=== PATIENT | male | born 2000 | race Two or more races ===

== ENCOUNTER 2022-08-03 06:21 | Day surgery (SDC) | payer OTHER ==
[2022-07-29 12:10] LABS: Basophils # (auto) 0 10 ^3/uL (0-0.2); Basophils % (auto) 0.3 % (0.0-2.0); Eosinophils # (auto) 0.1 10 ^3/uL (0-0.8); Eosinophils % (auto) 1.4 % (0.0-7.0); Lymphocytes # (auto) 1.6 10 ^3/uL (0.4-5.4); Lymphocytes % (auto) 28.4 % (10.0-50.0); Mean Corpuscular Hemoglobin 29.4 pg (28.0-32.0); Mean Corpuscular Hgb Conc. 34.7 g/dL (32.0-36.0); Mean Corpuscular Volume 84.7 fL (80.0-100.0); Monocytes # (auto) 0.4 10 ^3/uL (0-1.3); Monocytes % (auto) 7.1 % (0.0-12.0); Neutrophils # (auto) 3.6 10 ^3/uL (1.6-8.6); Neutrophils % (auto) 62.8 % (37.0-80.0); Nucleated Red Blood Cells % 0.2 %; Red Blood Cells 5.79 10^6/uL (4.5-5.90); White Blood Cell 5.7 10^3/uL (4.4-10.8)
[2022-07-29 12:25] LABS: Albumin 3.9 g/dL (3.4-5.0); Calcium 9.2 mg/dL (8.5-10.1); Potassium 4.2 mmol/L (3.5-5.1)
[2022-07-29 12:28] LABS: BUN/Creatinine Ratio 11.7 (10.0-20.0); Bilirubin, Total 0.6 mg/dL (0.2-1.0); Total Protein 7.8 g/dL (6.4-8.2)
[2022-07-29 12:35] LABS: INR 1.09 (0.9-1.15); Partial Thromboplastin Time 31.1 sec (24.6-33.4)
[2022-07-29 12:46] LABS: Urine Bacteria NONE SEEN /hpf (None Seen); Urine Blood Negative /uL (Negative); Urine Specific Gravity 1.005 (1.001-1.035); Urine WBC <1 /hpf (0 - 3)
[~2022-08-03] VITALS: Ht 180.3 cm; Wt 83.9 kg
[2022-08-03] MEDS ORDERED: GLYCOPYRROLATE 0.2 MG/ML 1ML VIAL ONE (06:53)
[2022-08-03] MEDS ORDERED: DexAMETHasone SOD PHOS 10MG/1ML VIAL INJ ONE (06:53)
[2022-08-03] MEDS ORDERED: LIDOCAINE 2% (LOCAL ANESTH.) PF 5ml SDV ONE ×2 (06:53→07:24)
[2022-08-03] MEDS ORDERED: fentaNYL CITRATE 100 MCG/2 ML VL ONE (06:53)
[2022-08-03] MEDS ORDERED: KETAMINE HCL 10 ML ONE (06:54)
[2022-08-03] MEDS ORDERED: SUGAMMADEX 200mg/2ml Vial (100MG/ML) IV ONE (06:54)
[2022-08-03] MEDS ORDERED: PROPOFOL 10 MG/ML 20 ML IV ONE (06:55)
[2022-08-03] MEDS ORDERED: ONDANSETRON HCL 4 MG/2 ML VIAL ONE (06:56)
[2022-08-03] MEDS ORDERED: LIDOCAINE 2% JELLY 11ml (GLYDO) ONE (07:08)
[2022-08-03] MEDS ORDERED: ESMOLOL HCL 10 ML IV ONE (07:51)
[2022-08-03] MEDS ORDERED: LABETALOL HCL 5 MG/ML 4ML SYRINGE IV PRN (09:00)
[2022-08-03] MEDS ORDERED: ONDANSETRON HCL 4 MG/2 ML VIAL IV PRN (09:00)
[2022-08-03] MEDS ORDERED: FLUMAZENIL 0.1 MG/ML INJ 10ML MDV IV PRN (09:00)
[2022-08-03] MEDS ORDERED: NALOXONE HCL 0.4 MG/ML VIAL IV PRN (09:00)
[2022-08-03] MEDS ORDERED: fentaNYL CITRATE 100 MCG/2 ML VL IV PRN (09:00)
[2022-08-03] MEDS ORDERED: oxyCODONE HCL 5MG TAB PO PRN (09:00)
[2022-08-03] MEDS ORDERED: HYDROmorphone HCL 2 MG/ML VL/or syr IV PRN (09:00)
[2022-08-03] MEDS ORDERED: ePHEDrine SULFATE 50 MG/ML AMP IV PRN (09:00)
[2022-08-03] MEDS ORDERED: hydrALAZINE HCL 20 MG/ML VL IV PRN (09:00)
[2022-08-03] MEDS ORDERED: oxyCODONE HCL 5MG TAB PO ONE (09:19)
[2022-08-03 10:00] VITALS: BP 144/66
== END 2022-08-03 10:01 | disposition home or self-care (01) ==
LOC: SUR 06:21
PROVIDERS: ATTEND Otolaryngology
DX: J03.91 Acute recurrent tonsillitis, unspecified (principal); J35.01 Chronic tonsillitis
CPT/HCPCS: 36415; 42826; 80053; 81001; 85025; 85610; 85730; J1100; J2001; J2405; J2704; J3010

== ENCOUNTER → 2023-05-25 | Outpatient (CLI) | payer OTHER ==
[2023-05-25 14:56] LABS: Albumin 4.4 g/dL (3.2-4.8); Bilirubin, Direct 0.2 mg/dL (<0.3); Bilirubin, Total 0.6 mg/dL (0.2-1.0); Total Protein 6.9 g/dL (5.7-8.2)
[2023-05-25 14:57] LABS: Urine Bacteria NONE SEEN /hpf (None Seen); Urine Blood Negative /uL (Negative); Urine Clarity HAZY (Clear); Urine Color Colorless (Yellow); Urine Protein, UAD Negative (Negative); Urine Specific Gravity 1.026 (1.001-1.035); Urine Urobilinogen Normal (Negative); Urine WBC 4 /hpf (0 - 3); Urine pH 6.5 (5.0-8.0)
== END | disposition home or self-care (01) ==
LOC: LAB 14:17
PROVIDERS: ATTEND Internal Medicine
DX: R74.8 Abnormal levels of other serum enzymes (principal); R82.90 Unspecified abnormal findings in urine
CPT/HCPCS: 36415; 80076; 81001; 87086

== ENCOUNTER → 2024-08-08 | Outpatient (CLI) | payer OTHER ==
[2024-08-08 11:32] LABS: Urine Bacteria None Seen /hpf (None Seen)
[2024-08-08 11:41] LABS: Basophils # (auto) 0 10 ^3/uL (0-0.2); Eosinophils # (auto) 0.1 10 ^3/uL (0-0.8); Hemoglobin 17.9 g/dL (13.5-17.5)
[2024-08-08 11:43] LABS: Basophils % (auto) 0.5 % (0.0-2.0); Hematocrit 52.3 % (41.0-53.0); Lymphocytes # (auto) 1.6 10 ^3/uL (0.4-5.4); Lymphocytes % (auto) 31.6 % (10.0-50.0); Mean Corpuscular Hemoglobin 29.2 pg (28.0-32.0); Mean Corpuscular Hgb Conc. 34.2 g/dL (32.0-36.0); Mean Corpuscular Volume 85.3 fL (80.0-100.0); Monocytes # (auto) 0.4 10 ^3/uL (0-1.3); Monocytes % (auto) 7.2 % (0.0-12.0); Neutrophils % (auto) 58.7 % (37.0-80.0); Nucleated Red Blood Cells % 0.3 %; Platelet Count (auto) 273 10^3/uL (140-450); Red Blood Cells 6.14 10^6/uL (4.5-5.90); Red Cell Distribution Width 12.8 % (11.8-14.3); White Blood Cell 5.1 10^3/uL (4.4-10.8)
[2024-08-08 11:53] LABS: Urine Blood Negative /uL (Negative); Urine Clarity Clear (Clear); Urine Color Light-Yellow (Yellow); Urine Mucus FEW (None Seen); Urine Protein, UAD Negative (Negative); Urine Specific Gravity 1.027 (1.001-1.035); Urine Squamous Epithelial Cell None Seen /hpf (<5); Urine Urobilinogen Normal (Negative); Urine WBC < 1 /HPF (0-3)
[2024-08-08 11:57] LABS: Alanine Aminotransferase 31 U/L (7-40); Alkaline Phosphatase 114 U/L (46-116); Anion Gap 5 (5-15); Aspartate Aminotransferase 30 U/L (13-40); BUN/Creatinine Ratio 17.6 (10.0-20.0); Blood Urea Nitrogen 18 mg/dL (9-23); Calcium 10.2 mg/dL (8.7-10.4); Carbon Dioxide 28 mmol/L (20-31); Chloride 104 mmol/L (98-107); Glucose 98 mg/dL (74-106); Potassium 4.3 mmol/L (3.5-5.1); Sodium 137 mmol/L (136-145); Triglycerides 61 mg/dL (< 150)
[2024-08-08 11:58] LABS: Albumin 4.9 g/dL (3.2-4.8); Bilirubin, Total 0.8 mg/dL (0.2-1.0); Cholesterol 200 mg/dL (< 200); HDL Cholesterol 51 mg/dL (40-59); LDL Cholesterol 142 mg/dL (< 100)
== END | disposition home or self-care (01) ==
LOC: LAB 11:17
PROVIDERS: ATTEND Internal Medicine
DX: E78.00 Pure hypercholesterolemia, unspecified (principal); R74.8 Abnormal levels of other serum enzymes; R82.90 Unspecified abnormal findings in urine; Z13.1 Encounter for screening for diabetes mellitus; Z00.01 Encounter for general adult medical examination with abnormal findings
CPT/HCPCS: 36415; 80053; 80061; 81001; 83036; 84439; 84443; 85025

== ENCOUNTER 2024-09-27 02:22 | Inpatient (IN) | payer OTHER ==
[~2024-09-27] VITALS: Ht 180.3 cm; Wt 89.0 kg
--- NOTE | 2024-09-27 02:50 | ED.PDOC ---
History of Present Illness HPI Comments 23-year-old male who came to ER for headaches. Patient states he hit his head on a bar at the gym last week, started having headaches but this all resolved spontaneously. Yesterday at around 11:00 a.m., and a metal box. Denies any loss of consciousness. Patient went home, slept it off but woke up due to right sided headaches, which he describes as "cold", 6/10 intensity, associated with lightheadedness, imbalance and photophobia. Denies any tinnitus, nausea or vomiting Chief Complaint: Headaches Time Seen by MD: 02:49 Reviewed Notes: Nurses Notes Allergies: Coded Allergies: NO KNOWN ALLERGIES (Unverified , 07/29/22) Home Meds Active Scripts Ibuprofen Micronized (MOTRIN TABLET) 600 Mg Tb, 600 MG PO TID PRN for 5 Days, #15 TAB *Black box warning-NSAIDS can increase risk of HI & hypertension, GI irritation, ulceration, bleed, perferation. Do not use post cardiac surgery. Use short duration/lowest effective dose. Prov:CORINA BEVERLY MD 09/27/24 Acetaminophen (Tylenol) 325 Mg Tb, 650 MG PO Q8HPRN PRN for 10 Days, #60 TAB Prov:CORINA BEVERLY MD 09/27/24 Information Source: Patient, Relative (Mother) Mode of Arrival: Ambulatory Severity: Moderate Timing: Hours Duration: Since onset Review of Systems REVIEW OF SYSTEMS: No fever, no chills, or fatigue HEENT: No sore throat, no earache, no congestion, no neck pain. Cardiac: No chest pain. No palpitations. Lungs: No shortness of breath, no cough. GI: No nausea, no vomiting, no diarrhea, no constipation, no abdominal pain : No dysuria, frequency, or urgency. No hematuria. Musculoskeletal: No joint pain , no joint swelling, no extremity edema. Skin: No rash, no itching. Neuro: (+) headache, no dizziness, no weakness, (+) imbalance Vital Signs Vital Signs Date Time Temp Pulse Resp B/P (MAP) Pulse Ox O2 Delivery O2 Flow Rate FiO2 09/27/24 04:00 74 09/27/24 03:45 98.1 18 126/78 (94) 96 98.1 09/27/24 03:45 Room Air* 0 21 Physical Exam General: Awake, alert and oriented. No acute distress. Skin: Skin in warm, dry and intact. Appropriate color for ethnicity. Nailbeds pink with no cyanosis. HEENT: The head is normocephalic and atraumatic. Conjunctivae are clear without exudates or hemorrhage. Sclera is non-icteric. EOM are intact. No signs of nystagmus. Eyelids are normal in appearance without swelling or lesions. PERRLA. Oral mucosa is pink and moist Neck: The neck is supple with normal range of motion. No JVD. Cardiac: Heart rate and rhythm are normal. No murmurs, gallops, or rubs are auscultated. Respiratory: No signs of respiratory distress. Lung sounds are clear in all lobes bilaterally without rales, rhonchi, or wheezes. Abdominal: Abdomen is soft, non-tender without distention. Bowel sounds are present and normoactive in all four quadrants. Extremities: Upper and lower extremities are atraumatic in appearance without deformity or edema. Neurological: The patient is awake, alert and oriented to person, place, and time with normal speech. Speech is clear. There is no facial asymmetry. Normal finger to nose test. Normal heel bettencourt test. Wobbling/ataxic gait. + Romberg. Psychiatric: Appropriate mood and affect. Good judgement and insight. Past Medical History Past Medical History (Other): Meningitis Surgical History: Denies all surgeries Family History Family History: Reviewed,noncontributory to illness Social History Smoker: Non-Smoker Alcohol: Denies ETOH Use Drugs: Denies Drug Use Lives In: Home Was a procedure done? Was a procedure done?: No Differential Dx Considerations may include: Differential diagnoses considered include but are not limited to temporal arteritis, acute angle closure glaucoma, encephalitis, bacterial meningitis, carbon monoxide poisoning, posttraumatic headache, SAH, subdural hematoma, cervical artery dissection, venous sinus thrombosis, CVA, migraine headache, cluster headache, tension headache, TMJ disorder, frontal sinusitis, cervical spondylosis, intracranial mass, pituitary apoplexy. X-Ray, Labs, Meds, VS Vital Signs Date Time Temp Pulse Resp B/P (MAP) Pulse Ox O2 Delivery O2 Flow Rate FiO2 09/27/24 04:00 74 09/27/24 03:45 98.1 68 18 126/78 (94) 96 98.1 09/27/24 03:45 68 18 96 Room Air* 0 21 09/27/24 03:11 98.7 60 16 121/77 (92) 96 98.7 Lab Test 09/27/24 03:55 09/27/24 02:55 Range/Units Troponin I High Sensitivity 13 12 </=54 ng/L White Blood Count 6.8 4.4-10.8 10^3/uL Red Blood Count 5.86 4.5-5.90 10^6/uL Hemoglobin 17.2 13.5-17.5 g/dL Hematocrit 49.9 41.0-53.0 % Mean Corpuscular Volume 85.1 80.0-100.0 fL Mean Corpuscular Hemoglobin 29.4 28.0-32.0 pg Mean Corpuscular Hemoglobin Concent 34.5 32.0-36.0 g/dL Red Cell Distribution Width 12.9 11.8-14.3 % Platelet Count 229 140-450 10^3/uL Mean Platelet Volume 7.7 6.9-10.8 fL Neutrophils (%) (Auto) 49.8 37.0-80.0 % Lymphocytes (%) (Auto) 37.9 10.0-50.0 % Monocytes (%) (Auto) 8.6 0.0-12.0 % Eosinophils (%) (Auto) 2.9 0.0-7.0 % Basophils (%) (Auto) 0.8 0.0-2.0 % Neutrophils # (Auto) 3.4 1.6-8.6 10 ^3/uL Lymphocytes # (Auto) 2.6 0.4-5.4 10 ^3/uL Monocytes # (Auto) 0.6 0-1.3 10 ^3/uL Eosinophils # (Auto) 0.2 0-0.8 10 ^3/uL Basophils # (Auto) 0.1 0-0.2 10 ^3/uL Nucleated Red Blood Cells 0.1 % Prothrombin Time 11.4 9.3-11.8 sec Prothrombin Time INR 1.08 0.9-1.15 Sodium Level 137 136-145 mmol/L Potassium Level 3.9 3.5-5.1 mmol/L Chloride Level 103 98-107 mmol/L Carbon Dioxide Level 27 20-31 mmol/L Anion Gap 7 5-15 Blood Urea Nitrogen 15 9-23 mg/dL Creatinine 1.03 0.700-1.30 mg/dL Glomerular Filtration Rate Calc 106 >90 mL/min BUN/Creatinine Ratio 14.6 10.0-20.0 Serum Glucose 98 74-106 mg/dL Calcium Level 9.7 8.7-10.4 mg/dL Magnesium Level 2.1 1.6-2.6 mg/dL Total Bilirubin 0.5 0.2-1.0 mg/dL Aspartate Amino Transferase (AST) 42 H <34 U/L Alanine Aminotransferase (ALT) 35 7-40 U/L Alkaline Phosphatase 130 H 46-116 U/L Creatine Kinase 760 H 46-171 U/L Total Protein 7.6 5.7-8.2 g/dL Albumin 4.8 3.2-4.8 g/dL Plasma/Serum Blood Alcohol 4.0 <10 mg/dL Current Medications Medications (Trade) Dose Ordered Sig/Don Route Start Time Stop Time Status Last Admin Sodium Chloride 1,000 ml @ 1,000 mls/hr Q1H ONCE IV 09/27/24 02:45 09/27/24 03:44 DC 09/27/24 03:15 Acetaminophen (Tylenol Tablet Or Capsule) 1,000 mg ONCE ONCE PO 09/27/24 02:45 09/27/24 02:46 DC 09/27/24 04:07 CT HEAD WITHOUT CONTRAST INDICATION: Head injury, headache, dizziness, confusion COMPARISON: None TECHNIQUE: CT of the head without intravenous contrast. RADIATION DOSE: CTDIvol: 55.07 mGy, DLP: 882.86 mGy*cm FINDINGS: There is no evidence of acute intracranial hemorrhage, extra-axial collection, mass effect, midline shift, herniation or hydrocephalus. The ventricles, sulci and cisterns are age appropriate. The ruiz-white differentiation is intact. The visualized paranasal sinuses and mastoid air cells are clear. The surrounding soft tissues and osseous structures are unremarkable. IMPRESSION: 1. No evidence of acute intracranial hemorrhage, mass effect or hydrocephalus. EDURE(s): [place] - ANGIO HEAD/Neck INDICATION: intracranial hemorrhage EXAM DATE: 09/27/2024 03:49 AM COMPARISON: None TECHNIQUE: CTA head without and with intravenous contrast. CTA neck with intravenous contrast. 3D image postprocessing was performed on a dedicated workstation and images were used for interpretation and reporting. RADIATION DOSE: Brain: CTDIvol: 22.28 mGy, DLP: 828.54 mGy*cm Tracker: CTDIvol: 22.28 mGy, DLP: 828.54 mGy*cm Angio: CTDIvol: 22.28 mGy, DLP: 828.54 mGy*cm FINDINGS: c CTA head: There is normal enhancement of the visualized distal internal carotid, anterior and middle cerebral arteries. There is a normal anterior communicating artery complex. There are bilateral posterior communicating arteries. The vertebral, basilar, cerebellar and posterior cerebral arteries are within normal limits. The early parenchymal enhancement is grossly unremarkable. The visualized intracranial venous structures are grossly unremarkable. CTA neck: The visualized thoracic aortic arch and proximal great vessels are unremarkable. The left common, internal and external carotid arteries are within normal limits. The right common, internal and external carotid arteries are within normal limits. The cervical segments of the right and left vertebral arteries are within normal limits. The limited visualized lung apices are clear. The surrounding soft tissues and osseous structures are otherwise unremarkable. IMPRESSION: No evidence of hemodynamically significant intracranial stenosis, proximal occlusion or aneurysm. No evidence of hemodynamically significant cervical stenosis or dissection. EXAM: CT CERVICAL WITHOUT CONTRAST HISTORY: head injury COMPARISON: None CTDIvol 22.94 mGy, DLP 648.5 mGy*cm. TECHNIQUE: Multiple axial CT images of the spine were obtained using bone algorithm. Axial and coronal reformatting was done. Bone and soft tissue windows were reviewed. FINDINGS: No CT evidence of definite acute fracture, spinal dislocation, or significant appearing acute subluxation is seen. Mild reversal of the normal cervical lordosis may be due to patient positioning or muscle spasm. Mild dextroconvex curvature of the cervicothoracic spine centered at T1. The visualized paraspinal soft tissues are grossly unremarkable. Multilevel degenerative changes of the spine. IMPRESSION: 1. No definite CT evidence of acute fracture or dislocation of the bony cervical spine. Time of 1ST Reevaluation: 02:43 Reevaluation 1ST: Unchanged Patient Education/Counseling: Prognosis Family Education/Counseling: Prognosis SEPSIS Sepsis Screen Physician Orders Head Without Contrast (09/27/24 02:42) Orthostatic Vital Signs (09/27/24 02:42) Cervical Without Contrast (09/27/24 03:04) Angio Head/Neck (09/27/24 03:22) Imaging Transfer Request (09/27/24 03:35) Brain Head Wo Contrast (09/27/24 04:10) * Neurology Consult (09/27/24 04:10) Vital Signs Date Time Temp Pulse Resp B/P (MAP) Pulse Ox O2 Delivery O2 Flow Rate FiO2 09/27/24 04:00 74 09/27/24 03:45 98.1 68 18 126/78 (94) 96 98.1 09/27/24 03:45 68 18 96 Room Air* 0 21 09/27/24 03:11 98.7 60 16 121/77 (92) 96 98.7 Laboratory Tests Test 09/27/24 02:55 White Blood Count 6.8 10^3/uL (4.4-10.8) Departure 1 Departure Time of Disposition: 03:33 Impression: Primary Impression: Head injury Additional Impressions: Concussion Abnormal gait Disposition: 02 SHORT TERM HOSPITAL Condition: Stable e-Prescriptions Ibuprofen Micronized (MOTRIN TABLET) 600 Mg Tb 600 MG PO TID PRN for 5 Days, #15 TAB *Black box warning-NSAIDS can increase risk of HI & hypertension, GI irritation, ulceration, bleed, perferation. Do not use post cardiac surgery. Use short duration/lowest effective dose. Prov: CORINA BEVERLY MD 09/27/24 Acetaminophen (Tylenol) 325 Mg Tb 650 MG PO Q8HPRN PRN for 10 Days, #60 TAB Prov: CORINA BEVERLY MD 09/27/24 Comments 23 year old male presents with head injury, headache, abnormal gait. Initial independent interpretation of CT head concerning for right occipital hemorrhage @03:32 am Case discussed with Dr. Mcbride at [facility] who accepts patient for transfer. @03:[address] Marley who reviewed CT head again stating there is no hemorrhage or hematoma and findings in right occipital area are normal Sagittal Sinus) Patient admitted to hospitalist service for further treatment, evaluation and monitoring. Extensive evaluation was performed in attempt to identify or rule out: (See differential diagnosis section) The following tests were ordered, and results were reviewed by me and discussed with patient: (See diagnostic results section) The following test were independently interpreted by me: N/A I reviewed and agreed with the following test results read by other providers: N/A I reviewed the following notes from the pt's past medical encounters: N/A Additional information was gathered from interviewing the following independent historians: Patient's mother at bedside Discussion of management or test interpretation with external physician/other qualified health intensive care nurse: N/A Addressed an acute or chronic illness that poses a threat to life or bodily function: Intracranial hemorrhage Decision regarding hospitalization or escalation of hospital level of care: Risk and benefits of admission for further treatment of patient's condition was considered. Due to patient's current clinical condition, high risk of decline and poor outcome if discharged and need for further inpatient management and monitoring, patient will be admitted to the hospital. Discussed with patient. Drug therapy requiring intensive monitoring for toxicity: N/A Parenteral controlled substances: N/A Decision regarding elective major surgery with identified patient or procedure risk factors: N/A Decision regarding emergency major surgery: N/A Decision not to resuscitate or to de-escalate care because of poor prognosis: N/A Diagnosis or treatment significantly limited by social determinants of health: N/A Critical Care Note Critical Care Time?: No Stability Stability form required: No Heart Score Heart Score: Heart Score Response (Comments) Value History N/A 0 EKG N/A 0 Age N/A 0 Risk Factors N/A 0 Troponin N/A 0 Total 0 I personally scribed for VASILIY CHAUDHRY MD ([email or web address]) on 09/27/24 at 02:50. Electronically submitted by Anam Blanchard ([employer]). I personally scribed for VASILIY CHAUDHRY MD ([email or web address]) on 09/27/24 at 04:41. Electronically submitted by Anam Blanchard ([employer]). VASILIY CHAUDHRY MD Sep 27, 2024 02:50
[2024-09-27] MEDS: SODIUM CHLORIDE 0.9% 1,000 ML IV ONE (03:15)
[2024-09-27 03:20] LABS: Basophils # (auto) 0.1 10 ^3/uL (0-0.2); Basophils % (auto) 0.8 % (0.0-2.0); Eosinophils # (auto) 0.2 10 ^3/uL (0-0.8); Eosinophils % (auto) 2.9 % (0.0-7.0); Hematocrit 49.9 % (41.0-53.0); Hemoglobin 17.2 g/dL (13.5-17.5); Lymphocytes # (auto) 2.6 10 ^3/uL (0.4-5.4); Lymphocytes % (auto) 37.9 % (10.0-50.0); Mean Corpuscular Hemoglobin 29.4 pg (28.0-32.0); Mean Corpuscular Hgb Conc. 34.5 g/dL (32.0-36.0); Mean Corpuscular Volume 85.1 fL (80.0-100.0); Monocytes # (auto) 0.6 10 ^3/uL (0-1.3); Monocytes % (auto) 8.6 % (0.0-12.0); Neutrophils # (auto) 3.4 10 ^3/uL (1.6-8.6); Neutrophils % (auto) 49.8 % (37.0-80.0); Nucleated Red Blood Cells % 0.1 %; Platelet Count (auto) 229 10^3/uL (140-450); Red Blood Cells 5.86 10^6/uL (4.5-5.90); Red Cell Distribution Width 12.9 % (11.8-14.3); White Blood Cell 6.8 10^3/uL (4.4-10.8)
[2024-09-27] MEDS: levETIRAcetam 1000 mg/100ml 100 ML IV ONE (03:30)
--- NOTE | 2024-09-27 03:30 | DVH ---
CT HEAD WITHOUT CONTRAST INDICATION: Head injury, headache, dizziness, confusion COMPARISON: None TECHNIQUE: CT of the head without intravenous contrast. RADIATION DOSE: CTDIvol: 55.07 mGy, DLP: 882.86 mGy*cm FINDINGS: There is no evidence of acute intracranial hemorrhage, extra-axial collection, mass effect, midline s hift, herniation or hydrocephalus. The ventricles, sulci and cisterns are age appropriate. The ruiz -white differentiation is intact. The visualized paranasal sinuses and mastoid air cells are clear. The surrounding soft tissues and osseous structures are unremarkable. IMPRESSION: 1. No evidence of acute intracranial hemorrhage, mass effect or hydrocephalus.
[2024-09-27 03:36] LABS: Alanine Aminotransferase 35 U/L (7-40); Anion Gap 7 (5-15); BUN/Creatinine Ratio 14.6 (10.0-20.0); Bilirubin, Total 0.5 mg/dL (0.2-1.0); Blood Urea Nitrogen 15 mg/dL (9-23); Calcium 9.7 mg/dL (8.7-10.4); Carbon Dioxide 27 mmol/L (20-31); Chloride 103 mmol/L (98-107); Glucose 98 mg/dL (74-106); Magnesium 2.1 mg/dL (1.6-2.6); Potassium 3.9 mmol/L (3.5-5.1); Sodium 137 mmol/L (136-145); Total Protein 7.6 g/dL (5.7-8.2)
--- NOTE | 2024-09-27 03:42 | DVH ---
EXAM: CT CERVICAL WITHOUT CONTRAST HISTORY: head injury COMPARISON: None CTDIvol 22.94 mGy, DLP 648.5 mGy*cm. TECHNIQUE: Multiple axial CT images of the spine were obtained using bone algorithm. Axial and coron al reformatting was done. Bone and soft tissue windows were reviewed. FINDINGS: No CT evidence of definite acute fracture, spinal dislocation, or significant appearing acute subluxa tion is seen. Mild reversal of the normal cervical lordosis may be due to patient positioning or musc le spasm. Mild dextroconvex curvature of the cervicothoracic spine centered at T1. The visualized par aspinal soft tissues are grossly unremarkable. Multilevel degenerative changes of the spine. IMPRESSION: 1. No definite CT evidence of acute fracture or dislocation of the bony cervical spine.
[2024-09-27 03:44] LABS: Albumin 4.8 g/dL (3.2-4.8); Alkaline Phosphatase 130 U/L (46-116); Aspartate Aminotransferase 42 U/L (<34); Creatine Kinase IFCC 760 U/L (46-171)
[2024-09-27 03:45] VITALS: PULSE 68; RESP 18; O2SAT 96
[2024-09-27 03:58] LABS: INR 1.08 (0.9-1.15); Prothrombin Time 11.4 sec (9.3-11.8)
[2024-09-27] MEDS: ACETAMINOPHEN 500 MG TAB or CAP PO ONE (04:07)
--- NOTE | 2024-09-27 04:30 | DVH ---
INDICATION: intracranial hemorrhage EXAM DATE: 09/27/2024 03:49 AM COMPARISON: None TECHNIQUE: CTA head without and with intravenous contrast. CTA neck with intravenous contrast. 3D image postprocessing was performed on a dedicated workstation and images were used for interpretation and reporting. RADIATION DOSE: Brain: CTDIvol: 22.28 mGy, DLP: 828.54 mGy*cm Tracker: CTDIvol: 22.28 mGy, DLP: 828.54 mGy*cm Angio: CTDIvol: 22.28 mGy, DLP: 828.54 mGy*cm FINDINGS: c CTA head: There is normal enhancement of the visualized distal internal carotid, anterior and middle cerebral a rteries. There is a normal anterior communicating artery complex. There are bilateral posterior com municating arteries. The vertebral, basilar, cerebellar and posterior cerebral arteries are within n ormal limits. The early parenchymal enhancement is grossly unremarkable. The visualized intracrania l venous structures are grossly unremarkable. CTA neck: The visualized thoracic aortic arch and proximal great vessels are unremarkable. The left common, in ternal and external carotid arteries are within normal limits. The right common, internal and deck engineer al carotid arteries are within normal limits. The cervical segments of the right and left vertebral arteries are within normal limits. The limited visualized lung apices are clear. The surrounding so ft tissues and osseous structures are otherwise unremarkable. IMPRESSION: c No evidence of hemodynamically significant intracranial stenosis, proximal occlusion or aneurysm. No evidence of hemodynamically significant cervical stenosis or dissection. CAROTID STENOSIS REFERENCE Distal internal carotid artery diameter as the denominator for stenosis measurement: MILD = <50% stenosis. MODERATE = 50-69% stenosis. SEVERE = 70-89% stenosis. CRITICAL = 90-99% stenosis. OCCLUDED = 100% stenosis.
[2024-09-27] MEDS ORDERED: NITROGLYCERIN 0.4 MG SL TAB SL PRN (06:00)
[2024-09-27] MEDS ORDERED: ACETAMINOPHEN 325 MG TAB PO PRN (06:00)
[2024-09-27] MEDS: SODIUM CHLORIDE 0.9% 1,000 ML IV SCH (06:00)
[2024-09-27] MEDS ORDERED: HYDROcodone-ACET 5/325MG TAB PO PRN (06:00)
[2024-09-27] MEDS ORDERED: DOCUSATE SOD 100 MG CAP PO PRN (06:00)
[2024-09-27] MEDS ORDERED: MORPHINE SULFATE INJ 2 MG/ml SYRG IV PRN (06:00)
[2024-09-27] MEDS ORDERED: ONDANSETRON HCL 4 MG/2 ML VIAL IV PRN (06:00)
[2024-09-27 06:06] LABS: Urine Bacteria None Seen /hpf (None Seen)
[2024-09-27 06:18] LABS: Urine Blood Negative /uL (Negative); Urine Clarity Clear (Clear); Urine Color Colorless (Yellow); Urine Protein, UAD Negative (Negative); Urine Specific Gravity 1.027 (1.001-1.035); Urine Squamous Epithelial Cell None Seen /hpf (<5); Urine Urobilinogen Normal (Negative); Urine pH 6.5 (5.0-9.0)
--- NOTE | 2024-09-27 06:18 | DVHHP2 ---
History of Present Illness Reason for Visit: Head injury History of Present Illness The patient is a 23-year-old male who denies past medical history presented to [facility] ED with complaint of headache. Patient reports that he hit his head on a back at the gym last week and started experiencing headache, but resolves spontaneously. Patient when home slept off, but woke up due to right-sided headache, described as cold, rating 6/10 intensity, associated with lightheadedness, unsteady gait, and photophobia. Patient was seen and evaluated in the ED, laboratory data shows WBC 6.8, platelets 229, sodium 137, potassium 3.9, BUN 15, creatinine 1.03, glucose 98, AST 42, ALT 35, troponin 12, CK 760, blood pressure 126/78, heart rate 68, temperature 98.1 F, O2 saturation 96% on room air. Head CT showed no evidence of acute intracranial hemorrhage, mass effect, or hydrocephalus. Neurology will follow the patient. Patient was given IV Keppra, please see medication orders section in the computer. On my assessment, patient denies chest pain, no dizziness, no blurry vision, no diaphoresis, no shortness a breath, no nausea, no vomiting, no fever, no chills. Patient was admitted for further evaluation and medical management. Past Medical History Denies past medical history Past Surgical History Denies all surgeries Family History Reviewed, noncontributory to the management of this case. Past Social History The patient lives at home, denies smoking, alcohol or illicit drugs abuse. Review of Systems Constitutional: No: Fever, Chills, Sweats, Weakness, Malaise, Other Eyes: No: Pain, Vision change, Conjunctivae inflammation, Eyelid inflammation, Other, Redness ENT: No: Ear pain, Ear discharge, Nose pain, Nose discharge, Nose congestion, Mouth pain, Mouth swelling, Throat pain, Throat swelling, Other Respiratory: No: Cough, Dry, Shortness of breath, SOB with excertion, Wheezing, Hemoptysis, Pleuritic Pain, Sputum, Wheezing, Other Cardiovascular: No: Chest Pain, Palpitations, Orthopnea, Paroxysmal Noc. Dyspnea, Edema, Lt Headedness, Other Gastrointestinal: No: Nausea, Vomiting, Abdominal Pain, Diarrhea, Constipation, Melena, Hematochezia, Other Genitourinary: No Dysuria, No Frequency, No Incontinence, No Hematuria, No Retention, No Other Musculoskeletal: No: other, neck pain, shoulder pain, arm pain, back pain, hand pain, leg pain, foot pain Skin: No: Rash, Lesions, Jaundice, Bruising, Other Neurological: Other (Headache); No: Weakness, Numbness, Incoordination, Change in speech, Confusion, Seizures Allergies: Coded Allergies: NO KNOWN ALLERGIES (Unverified , 07/29/22) Exam Vital Signs Vital Signs Date Time Temp Pulse Resp B/P (MAP) Pulse Ox O2 Delivery O2 Flow Rate FiO2 09/27/24 04:00 74 09/27/24 03:45 98.1 18 126/78 (94) 96 98.1 09/27/24 03:45 Room Air* 0 21 General Appearance: Alert, Oriented X3, Cooperative, No acute distress HEENT: Atraumatic, PERRLA, EOMI, Mucous membr. moist/pink Respiratory: Clear to auscultation, Normal air movement Cardiovascular: Regular rate, Normal S1, Normal S2, No murmurs Abdominal: Normal bowel sounds, Soft, No tenderness, No hepatospenomegaly, No masses Extremities: No clubbing, No cyanosis, No edema, Normal pulses, No tenderness/swelling Skin: No rashes, No breakdown, No significant lesion Neuro: Normal speech, Normal tone, Sensation intact, Cranial nerves 3-12 NL, Reflexes 2+, Other (Unsteady gait) Psych/Mental Status: Mental status NL, Mood NL Labs/Xrays Labs Test 09/27/24 03:55 09/27/24 02:55 Range/Units Troponin I High Sensitivity 13 </=54 ng/L White Blood Count 6.8 4.4-10.8 10^3/uL Red Blood Count 5.86 4.5-5.90 10^6/uL Hemoglobin 17.2 13.5-17.5 g/dL Hematocrit 49.9 41.0-53.0 % Mean Corpuscular Volume 85.1 80.0-100.0 fL Mean Corpuscular Hemoglobin 29.4 28.0-32.0 pg Mean Corpuscular Hemoglobin Concent 34.5 32.0-36.0 g/dL Red Cell Distribution Width 12.9 11.8-14.3 % Platelet Count 229 140-450 10^3/uL Mean Platelet Volume 7.7 6.9-10.8 fL Neutrophils (%) (Auto) 49.8 37.0-80.0 % Lymphocytes (%) (Auto) 37.9 10.0-50.0 % Monocytes (%) (Auto) 8.6 0.0-12.0 % Eosinophils (%) (Auto) 2.9 0.0-7.0 % Basophils (%) (Auto) 0.8 0.0-2.0 % Neutrophils # (Auto) 3.4 1.6-8.6 10 ^3/uL Lymphocytes # (Auto) 2.6 0.4-5.4 10 ^3/uL Monocytes # (Auto) 0.6 0-1.3 10 ^3/uL Eosinophils # (Auto) 0.2 0-0.8 10 ^3/uL Basophils # (Auto) 0.1 0-0.2 10 ^3/uL Nucleated Red Blood Cells 0.1 % Prothrombin Time 11.4 9.3-11.8 sec Prothrombin Time INR 1.08 0.9-1.15 Sodium Level 137 136-145 mmol/L Potassium Level 3.9 3.5-5.1 mmol/L Chloride Level 103 98-107 mmol/L Carbon Dioxide Level 27 20-31 mmol/L Anion Gap 7 5-15 Blood Urea Nitrogen 15 9-23 mg/dL Creatinine 1.03 0.700-1.30 mg/dL Glomerular Filtration Rate Calc 106 >90 mL/min BUN/Creatinine Ratio 14.6 10.0-20.0 Serum Glucose 98 74-106 mg/dL Calcium Level 9.7 8.7-10.4 mg/dL Magnesium Level 2.1 1.6-2.6 mg/dL Total Bilirubin 0.5 0.2-1.0 mg/dL Aspartate Amino Transferase (AST) 42 H <34 U/L Alanine Aminotransferase (ALT) 35 7-40 U/L Alkaline Phosphatase 130 H 46-116 U/L Creatine Kinase 760 H 46-171 U/L Total Protein 7.6 5.7-8.2 g/dL Albumin 4.8 3.2-4.8 g/dL Plasma/Serum Blood Alcohol 4.0 <10 mg/dL PATIENT: JOSH MCCAIN DACCT: [id number] UNIT: [id number] : 2000 LOC: ER ROOM / BED: / AGE / SEX: 23 / M ADM STATUS: REG ER SERVICE [id number] ORDERING PHYSICIAN: VASILIY CHAUDHRY MD PROCEDURE(s): HWOCT - HEAD WITHOUT CONTRAST REASON: Head injury, headache, dizziness, confusion ORDER NUMBER(s): [id number], ACCESSION NUMBER(s): [id number] CT HEAD WITHOUT CONTRAST INDICATION: Head injury, headache, dizziness, confusion COMPARISON: None TECHNIQUE: CT of the head without intravenous contrast. RADIATION DOSE: CTDIvol: 55.07 mGy, DLP: 882.86 mGy*cm FINDINGS: There is no evidence of acute intracranial hemorrhage, extra-axial collection, mass effect, midline shift, herniation or hydrocephalus. The ventricles, sulci and cisterns are age appropriate. The ruiz-white differentiation is intact. The visualized paranasal sinuses and mastoid air cells are clear. The surrounding soft tissues and osseous structures are unremarkable. IMPRESSION: 1. No evidence of acute intracranial hemorrhage, mass effect or hydrocephalus. ORDERING PHYSICIAN: VASILIY CHAUDHRY MD PROCEDURE(s): CS2 - CERVICAL WITHOUT CONTRAST REASON: head injury ORDER NUMBER(s): [id number], ACCESSION NUMBER(s): [id number] EXAM: CT CERVICAL WITHOUT CONTRAST HISTORY: head injury COMPARISON: None CTDIvol 22.94 mGy, DLP 648.5 mGy*cm. TECHNIQUE: Multiple axial CT images of the spine were obtained using bone algorithm. Axial and coronal reformatting was done. Bone and soft tissue windows were reviewed. FINDINGS: No CT evidence of definite acute fracture, spinal dislocation, or significant appearing acute subluxation is seen. Mild reversal of the normal cervical lordosis may be due to patient positioning or muscle spasm. Mild dextroconvex curvature of the cervicothoracic spine centered at T1. The visualized paraspinal soft tissues are grossly unremarkable. Multilevel degenerative changes of the spine. IMPRESSION: 1. No definite CT evidence of acute fracture or dislocation of the bony cervical spine. ORDERING PHYSICIAN: VASILIY CHAUDHRY MD PROCEDURE(s): [place] - ANGIO HEAD/Neck REASON: intracranial hemorrhage ORDER NUMBER(s): [id number], ACCESSION NUMBER(s): [id number] INDICATION: intracranial hemorrhage EXAM DATE: 09/27/2024 03:49 AM COMPARISON: None TECHNIQUE: CTA head without and with intravenous contrast. CTA neck with intravenous contrast. 3D image postprocessing was performed on a dedicated workstation and images were used for interpretation and reporting. RADIATION DOSE: Brain: CTDIvol: 22.28 mGy, DLP: 828.54 mGy*cm Tracker: CTDIvol: 22.28 mGy, DLP: 828.54 mGy*cm Angio: CTDIvol: 22.28 mGy, DLP: 828.54 mGy*cm FINDINGS: CTA head: There is normal enhancement of the visualized distal internal carotid, anterior and middle cerebral arteries. There is a normal anterior communicating artery complex. There are bilateral posterior communicating arteries. The vertebral, basilar, cerebellar and posterior cerebral arteries are within normal limits. The early parenchymal enhancement is grossly unremarkable. The visualized intracranial venous structures are grossly unremarkable. CTA neck: The visualized thoracic aortic arch and proximal great vessels are unremarkable. The left common, internal and external carotid arteries are within normal limits. The right common, internal and external carotid arteries are within normal limits. The cervical segments of the right and left vertebral arteries are within normal limits. The limited visualized lung apices are clear. The surrounding soft tissues and osseous structures are otherwise unremarkable. IMPRESSION: No evidence of hemodynamically significant intracranial stenosis, proximal occlusion or aneurysm. No evidence of hemodynamically significant cervical stenosis or dissection. CAROTID STENOSIS REFERENCE Distal internal carotid artery diameter as the denominator for stenosis me asurement: MILD = <50% stenosis. MODERATE = 50-69% stenosis. SEVERE = 70-89% stenosis. CRITICAL = 90-99% stenosis. OCCLUDED = 100% stenosis. Assessment/Plan Assessment/Plan Head injury Concussion Unsteady gait Plan 1. Admit to telemetry unit 2. Breathing treatment 3. Pain control management 4. Management of fluids and electrolytes 5. Consultation for Neurology 6. Diagnostic tests head CT 7. DVT prophylaxis-on SCDs 8. Repeat labs CBC, CMP in a.m. 9. Continue with current medical management 10. Treatment plan discussed with patient and RN. Patient was transferred to [facility] for higher level of care. Plan discussed with: Patient, Other (RN) My Orders Orders - DANIA BRADY DNP Procedure Category Date Status Time Complete Blood Count LAB 09/27/24 Verified 05:53 Basic Metabolic Panel LAB 09/27/24 Verified 05:53 Levetiracetam Ivpb PHA 09/27/24 Verified Keppra 10:00 Admit ADMIT 09/27/24 Verified 05:53 Allergies ALYSSA 09/27/24 Verified 05:53 Code Status CODE 09/27/24 Verified 05:53 2 Gm Sodium Diet DIET 09/27/24 Verified Breakfast 0.9% Ns 1000 Ml PHA 09/27/24 Verified 06:00 Oxygen Per Hour RT 09/27/24 Verified 05:53 Hydrocodone-Acet PHA 09/27/24 Verified 5/325mg Tab ([place] 06:00 Ondansetron Hcl PHA 09/27/24 Verified (Zofran) 06:00 Problem List: (1) Head injury (2) Concussion (3) Unsteady gait Date of Service: Sep 27, 2024 Billing Provider: DANIA BRADY DNP Common Visit Codes: [id number] INP/OBS CARE (HIGH) DANIA BRADY DNP Sep 27, 2024 06:18
[2024-09-27 06:32] LABS: Urine WBC < 1 /HPF (0-3)
[2024-09-27 06:38] LABS: Amphetamine Screen, Urine Neg (NEGATIVE); Barbiturate Scree,Urine Neg (NEGATIVE); Benzodiazephine Screen, Urine Neg (NEGATIVE); Cannabinoid Screen, Urine Neg (NEGATIVE); Cocaine Screen, Urine Neg (NEGATIVE); Opiate Scree,Urine Neg (NEGATIVE); Phencyclidine Screen, Urine Neg (NEGATIVE)
[2024-09-27] MEDS: IOHEXOL 350 MG/ML 100ML IJ ONE (07:21)
--- NOTE | 2024-09-27 08:14 | DVH ---
EXAMINATION: MRI BRAIN HEAD WO CONTRAST INDICATION: Head Injury, Abnormal Gait COMPARISON: CT scan of the head performed on 09/27/2024. TECHNIQUE: Multiplanar, multisequence magnetic resonance imaging of the brain was performed without the use of i ntravenous contrast. FINDINGS: No evidence of acute or remote infarct. No intracranial hemorrhage. No mass effect. The ventricles and sulci are normal in size for age. Clear basal cisterns. Flow voids in the major intracranial vessels are maintained. No abnormality of the orbits. Partial opacification of the right maxillary sinus. The mastoid air cells are clear. No abnormality of the visualized osseous structures and extracranial soft tissues. IMPRESSION: 1. No acute infarct, intracranial hemorrhage, mass effect, or hydrocephalus.
[2024-09-27] MEDS: levETIRAcetam 500 mg/100ml 100 ML IV SCH (10:00)
[2024-09-27] MEDS ORDERED: IBU600T PO (12:54)
[2024-09-27] MEDS ORDERED: ACET-1079 PO (12:54)
--- NOTE | 2024-09-27 12:56 | DVHDS2 ---
Discharge Summary Date of Admission Sep 27, 2024 at 05:53 Date of Discharge: Sep 27, 2024 Labs/Diagnostic Data: Laboratory Results Test 09/27/24 06:08 09/27/24 06:06 09/27/24 02:55 Troponin I High Sensitivity 12 ng/L (</=54) Urine Color Colorless (Yellow) Urine Clarity Clear (Clear) Urine pH 6.5 (5.0-9.0) Urine Specific [place] 1.027 (1.001-1.035) Urine Protein Negative (Negative) Urine Ketones Negative (Negative) Urine Blood Negative /uL (Negative) Urine Nitrite Negative (Negative) Urine Bilirubin Negative (Negative) Urine Urobilinogen Normal mg/dL (Negative) Urine Leukocyte Esterase Negative /uL (Negative) Urine RBC <1 /hpf (0 - 3) Urine Microscopic WBC < 1 /HPF (0-3) Urine Squamous Epithelial Cells None seen /hpf (<5) Urine Bacteria None seen /hpf (None Seen) Urine Glucose Normal mg/dL (Normal) Urine Opiates Screen Neg (NEGATIVE) Urine Fentanyl Screen Neg (NEGATIVE) Urine Barbiturates Screen Neg (NEGATIVE) Urine Phencyclidine Screen Neg (NEGATIVE) Urine Amphetamines Screen Neg (NEGATIVE) Urine Benzodiazepines Screen Neg (NEGATIVE) Urine Cocaine Screen Neg (NEGATIVE) Urine Cannabinoids Screen Neg (NEGATIVE) White Blood Count 6.8 10^3/uL (4.4-10.8) Red Blood Count 5.86 10^6/uL (4.5-5.90) Hemoglobin 17.2 g/dL (13.5-17.5) Hematocrit 49.9 % (41.0-53.0) Mean Corpuscular Volume 85.1 fL (80.0-100.0) Mean Corpuscular Hemoglobin 29.4 pg (28.0-32.0) Mean Corpuscular Hemoglobin Concent 34.5 g/dL (32.0-36.0) Red Cell Distribution Width 12.9 % (11.8-14.3) Platelet Count 229 10^3/uL (140-450) Mean Platelet Volume 7.7 fL (6.9-10.8) Neutrophils (%) (Auto) 49.8 % (37.0-80.0) Lymphocytes (%) (Auto) 37.9 % (10.0-50.0) Monocytes (%) (Auto) 8.6 % (0.0-12.0) Eosinophils (%) (Auto) 2.9 % (0.0-7.0) Basophils (%) (Auto) 0.8 % (0.0-2.0) Neutrophils # (Auto) 3.4 10 ^3/uL (1.6-8.6) Lymphocytes # (Auto) 2.6 10 ^3/uL (0.4-5.4) Monocytes # (Auto) 0.6 10 ^3/uL (0-1.3) Eosinophils # (Auto) 0.2 10 ^3/uL (0-0.8) Basophils # (Auto) 0.1 10 ^3/uL (0-0.2) Nucleated Red Blood Cells 0.1 % Prothrombin Time 11.4 sec (9.3-11.8) Prothrombin Time INR 1.08 (0.9-1.15) Sodium Level 137 mmol/L (136-145) Potassium Level 3.9 mmol/L (3.5-5.1) Chloride Level 103 mmol/L (98-107) Carbon Dioxide Level 27 mmol/L (20-31) Anion Gap 7 (5-15) Blood Urea Nitrogen 15 mg/dL (9-23) Creatinine 1.03 mg/dL (0.700-1.30) Glomerular Filtration Rate Calc 106 mL/min (>90) BUN/Creatinine Ratio 14.6 (10.0-20.0) Serum Glucose 98 mg/dL (74-106) Calcium Level 9.7 mg/dL (8.7-10.4) Magnesium Level 2.1 mg/dL (1.6-2.6) Total Bilirubin 0.5 mg/dL (0.2-1.0) Aspartate Amino Transferase (AST) 42 U/L (<34) Alanine Aminotransferase (ALT) 35 U/L (7-40) Alkaline Phosphatase 130 U/L (46-116) Creatine Kinase 760 U/L (46-171) Total Protein 7.6 g/dL (5.7-8.2) Albumin 4.8 g/dL (3.2-4.8) Plasma/Serum Blood Alcohol 4.0 mg/dL (<10) Other Laboratory Tests 09/27/24 02:55 Brief Hx & Hospital Course: 23 yo M with no sig pmh admitted for interactibel headache and head trauma. had had trauma 2x past 7 days, with headache on and off. CT done in ED with no bleed. MRI done with no abnormalities. patient stated headache improved. stable to dc home Condition at Discharge: Good Final Diagnosis/Problems List head trauma interactible headache Discharge Disposition: Home Discharge Instruct/Medications Diet: Regular Activity: No Restrictions, As Tolerated Discharge Statement: "Patient was advised to return to the ER or call 911 if any headaches, dizziness, shortness of breath, chest pain, abdominal pain, bleeding, fevers, or worsening of medical condition. Patient was counseled about treatment plan, medications, possible side effects, patientverbalized understanding. All questions were answered to the best of my ability. This discharge took greater then 30 minutes in planning, reviewing documentation, counseling the patient, and discussing with other team members." ASSESSMENT ASSESSMENT Assessment head trauma interactible headache Date of Service: Sep 27, 2024 Billing Provider: CORINA BEVERLY MD Common Visit Codes: [id number]/OBS DISCH DAY >30min CORINA BEVERLY MD Sep 27, 2024 12:56
[2024-09-27 13:16] VITALS: BP 108/39; PULSE 56; RESP 16; TEMP 98.1; O2SAT 95
== END 2024-09-27 14:05 | disposition home or self-care (01) | DRG 914 ==
LOC: ER 02:22 → OVERFLOW 05:53
PROVIDERS: ADMIT Student in an Organized Health Care Education/Training Program; ATTEND Student in an Organized Health Care Education/Training Program
DX: S09.90XA Unspecified injury of head, initial encounter (principal); Z86.61 Personal history of infections of the central nervous system; W18.39XA Other fall on same level, initial encounter; Y93.89 Activity, other specified; Y92.89 Other specified places as the place of occurrence of the external cause; Y99.8 Other external cause status
CPT/HCPCS: 36415; 70450; 70496; 70498; 70551; 72125; 80053; 80307; 80320; 81001; 82550; 83735; 84484; 85025; 85610; 96360; G0378